=== PATIENT | male | born 1990 | race African-American/Black ===

== ENCOUNTER → 2019-09-18 | Emergency (ER) | payer OTHER ==
[~2019-09-18] VITALS: Ht 185.4 cm; Wt 139.7 kg
[~2019-09-18] MED LIST: NORVASC 2.5 MG2.5 M1 PO
[2019-09-18 21:22] LABS: ABSOLUTE NEUTROPHILS 3.1 thou/uL (1.4-8.2); BASOPHILS 1.2 % (0.0-2.0); EOSINOPHILS 1.6 % (0.0-3.0); HEMATOCRIT 41.9 % (42.0-52.0); HEMOGLOBIN 13.6 gm/dL (14.0-18.0); LYMPHOCYTES 40.9 % (24.0-44.0); MCH 30.4 pg (26.0-34.0); MCHC 32.5 g/dL (28.0-37.0); MCV 93.7 fL (80.0-100.0); MONOCYTES 7.2 % (1.0-8.0); PLATELET COUNT 257 thou/uL (150-400); POLYS 49.1 % (36.0-66.0); RBC 4.47 mil/uL (4.50-6.00); WBC 6.3 thou/uL (4.0-11.0)
[2019-09-18 21:30] LABS: ANION GAP 9 mmol/L (7-16); BUN 6 mg/dL (7-18); CALCIUM 9.7 mg/dL (8.5-10.1); CHLORIDE 106 mmol/L (98-107); CO2 27 mmol/L (21-32); CREATININE 1.1 mg/dL (0.7-1.3); GLUCOSE 139 mg/dL (74-106); POTASSIUM 3.5 mmol/L (3.5-5.1); SODIUM 142 mmol/L (136-145)
[2019-09-18 21:39] LABS: TROPONIN-I <0.06 ng/mL (<0.06)
[2019-09-18 22:06] VITALS: BP 127/82
--- NOTE | 2019-09-19 17:11 | EKG ---
[facility] [address] [place] [address] ELECTROCARDIOGRAM REPORT Name: DERRICK GUSATFSON Room #: LESLIE Norris#: [id number] Admission: 09/18/19 Attend Phys: Discharge: Date of : 89 Report #: [id number] THIS REPORT FOR: //name// [facility] ED Test Date: 2019-09-18 Test Time: 21:06:44 Pat Name: DERRICK GUSTAFSON Department: Room: Gender: Hot Room Attendant: NAZIA : 1990 Requested By: Jamie Flaherty Order Number: [id number] MD: Brent Dobbins Measurements Intervals [place] Rate: 86 P: 26 MD: 146 QRS: 44 QRSD: 96 T: 23 QT: 373 QTc: 446 Interpretive Statements Sinus rhythm ST elev, probable normal early repol pattern No previous ECG available for comparison Electronically Signed On 09-19-2019 17:10:26 SPOOLER by Brent Dobbins [email or web address] <ELECTRONICALLY SIGNED> By: Brent Dobbins MD, [facility] 09/19/19 1710 2106 Brent Dobbins MD, FACC /EPI
== END ==
LOC: ER 20:42
PROVIDERS: Emergency Medicine
DX: R42 Dizziness and giddiness (principal); I10 Essential (primary) hypertension; F17.210 Nicotine dependence, cigarettes, uncomplicated

== ENCOUNTER 2020-05-29 00:28 | Emergency (ER) | payer OTHER ==
[~2020-05-29] VITALS: Ht 185.4 cm; Wt 145.2 kg
[2020-05-29 03:13] VITALS: BP 153/86
== END 2020-05-29 03:14 | disposition home or self-care (01) ==
LOC: ER 00:28
DX: S50.12XA Contusion of left forearm, initial encounter (principal); M79.645 Pain in left finger(s); M25.572 Pain in left ankle and joints of left foot; M25.512 Pain in left shoulder; I10 Essential (primary) hypertension; F17.210 Nicotine dependence, cigarettes, uncomplicated; Z79.899 Other long term (current) drug therapy; Z88.5 Allergy status to narcotic agent; W22.01XA Walked into wall, initial encounter; Y93.89 Activity, other specified; Y92.89 Other specified places as the place of occurrence of the external cause; Y99.8 Other external cause status

== ENCOUNTER 2020-09-08 13:06 | Emergency (ER) | payer OTHER ==
[~2020-09-08] VITALS: Ht 188 cm; Wt 147.0 kg
[2020-09-08] MEDS ORDERED: DOXYCYCLINE 10100 MG PO (13:41)
[2020-09-08 14:00] VITALS: BP 184/99
== END 2020-09-08 14:14 | disposition home or self-care (01) ==
LOC: ER 13:06
DX: L02.811 Cutaneous abscess of head [any part, except face] (principal); I10 Essential (primary) hypertension; F17.210 Nicotine dependence, cigarettes, uncomplicated; Z79.899 Other long term (current) drug therapy; Z88.5 Allergy status to narcotic agent

== ENCOUNTER 2020-11-29 04:17 | Emergency (ER) | payer OTHER ==
[~2020-11-29] VITALS: Ht 185.4 cm; Wt 149.7 kg
[~2020-11-29 04:17] MED LIST changes: +DOXYCYCLINE 10100 MG PO
[2020-11-29 07:30] VITALS: BP 138/86
== END 2020-11-29 07:30 | disposition home or self-care (01) ==
LOC: ER 04:17
DX: S93.402A Sprain of unspecified ligament of left ankle, initial encounter (principal); I10 Essential (primary) hypertension; F17.210 Nicotine dependence, cigarettes, uncomplicated; Z79.2 Long term (current) use of antibiotics; Z79.899 Other long term (current) drug therapy; Z88.5 Allergy status to narcotic agent; X50.1XXA Overexertion from prolonged static or awkward postures, initial encounter; Y93.89 Activity, other specified; Y92.89 Other specified places as the place of occurrence of the external cause; Y99.8 Other external cause status